=== PATIENT | female | born 1990 | race Caucasian/White ===

== ENCOUNTER 2019-03-27 10:27 | Emergency (ER) | payer OTHER ==
[2019-03-27 10:54] LABS: ABS Basophils 0.1 10^3/ul (0-0.2); ABS Eosinophils 0.1 10^3/ul (0-0.6); ABS Lymphocytes 2.8 10^3/ul (1.0-4.8); ABS Monocytes 0.7 10^3/ul (0-0.8); ABS Neutrophils 5.3 10^3/ul (1.5-7.7); Eosinophil % 1.5 %; Hematocrit 40 % (35-47); Hemoglobin 13.6 g/dL (12.0-16.0); Lymphocyte % 31.4 %; Mean Corpuscular HGB Conc 34 g/dL (31-36); Mean Corpuscular Hemoglobin 28 pg (27-31); Mean Corpuscular Volume 83 fL (80-97); Mean Platelet Volume 8.4 fL (7.4-10.4); Platelet Count 299 10^3/uL (150-450); Red Blood Count 4.81 10^6 /uL (3.70-4.87); Red Cell Distribution Width 13 % (10-15); White Blood Count 9.1 10^3/uL (3.5-10.8)
[2019-03-27 11:02] LABS: INR 1.06 (0.82-1.09)
[2019-03-27 11:08] LABS: Albumin 4.4 g/dL (3.2-5.2); Albumin/Globulin Ratio 1.4 (1-3); BUN/Creatinine Ratio 11.1 (8-20); Calcium 9.8 mg/dL (8.6-10.3); EGFR African American 89.6 (>60); Globulin 3.1 g/dL (2-4); Potassium 4.1 mmol/L (3.5-5.0); Total Bilirubin 0.6 mg/dL (0.2-1.0); Total Protein 7.5 g/dL (6.4-8.9)
[2019-03-27 12:03] VITALS: BP 111/89
--- NOTE | 2019-03-27 12:06 | ED ---
HPI Chest Pain - HPI Summary HPI Summary: This patient is a 28-year-old otherwise healthy female with a history of anxiety presenting to the ED with a "funny feeling" in chest. She states symptoms began yesterday, have remained intermittent, not worsening with positioning or exertion, not better with rest. She has not taken any medication for relief. She denies cardiac history. Denies family history of cardiac issues. Denies SOB. Denies recent travel, calf pain, heart palpitations or racing heart, recent surgery or trauma. She has had heart palpitations in the past associated with her anxiety, but states this feels somewhat different. Denies radiation of discomfort. Describes the pain as intermittent, rated 2/10 and as a funny feeling. No chest pressure or pain. - History of Current Complaint Chief Complaint: EDChestPainROMI Time Seen by Provider: 03/27/19 10:34 Hx Obtained From: Patient Onset/Duration: Started Hours Ago Timing: Constant Initial Severity: Mild Current Severity: Mild Pain Intensity: 0 Pain Scale Used: 0-10 Numeric Chest Pain Location: Mid Sternal Chest Pain Radiates: No Character: Other: - funny feeling Aggravating Factor(s): Nothing Alleviating Factor(s): Nothing Associated Signs and Symptoms: Positive: Negative - Risk Factors Pulmonary Embolism Risk Factors: Negative TAD Risk Factors: Negative - Allergy/Home Medications Allergies/Adverse Reactions: Allergies Allergy/AdvReac Type Severity Reaction Status Date / Time codeine Allergy Nausea And Verified 03/27/19 10:36 Vomiting Home Medications: Home Medications Norethindrone-Ethinyl Estrad [Nortrel 0.5-35-28 Tablet] 1 tab PO DAILY 03/27/19 [History Confirmed 03/27/19] PMH/Surg Hx/FS Hx/Imm Hx Previously Healthy: Yes - Immunization History Hx Pertussis Vaccination: No Immunizations Up to Date: Yes Infectious Disease History: No Infectious Disease History: Denies: Traveled Outside the [place] in Last 30 Days - Social History Occupation: Employed Full-time Lives: With Family Alcohol Use: Occasionally Hx Substance Use: No Substance Use Type: Reports: None Hx Tobacco Use: No Smoking Status (MU): Never Smoked Tobacco Review of Systems Negative: Fever, Chills, Fatigue, Skin Diaphoresis Positive: Chest Pain. Negative: Palpitations Negative: Shortness Of Breath, Cough Genitourinary: Negative Positive: no symptoms reported, see HPI Negative: Arthralgia, Myalgia Skin: Negative All Other Systems Reviewed And Are Negative: Yes Physical Exam Triage Information Reviewed: Yes Vital Signs On Initial Exam: Initial Vitals Temp Pulse Resp BP Pulse Ox 98.4 F 113 16 145/85 99 03/27/19 10:34 03/27/19 10:34 03/27/19 10:34 03/27/19 10:34 03/27/19 10:34 Vital Signs Reviewed: Yes Appearance: Positive: Well-Appearing, No Pain Distress, Well-Nourished Skin: Positive: Warm, Skin Color Reflects Adequate Perfusion Head/Face: Positive: Normal Head/Face Inspection Eyes: Positive: EOMI, JOSH, Conjunctiva Clear Neck: Positive: Supple, No Lymphadenopathy Respiratory/Lung Sounds: Positive: Clear to Auscultation, Breath Sounds Present Cardiovascular: Positive: RRR, Pulses are Symmetrical in both Upper and Lower Extremities Musculoskeletal: Positive: Normal, Strength/ROM Intact Neurological: Positive: Sensory/Motor Intact, Alert, Oriented to Person Place, Time, Speech Normal Psychiatric: Positive: Affect/Mood Appropriate AVPU Assessment: Alert Procedures - Sedation Patient Received Moderate/Deep Sedation with Procedure: No Diagnostics - Vital Signs Vital Signs Temp Pulse Resp BP Pulse Ox 03/27/19 11:59 97.9 F 71 22 111/89 97 03/27/19 11:44 78 18 97 03/27/19 11:16 79 17 121/75 97 03/27/19 11:00 79 19 97 03/27/19 10:46 80 15 125/81 97 03/27/19 10:42 13 03/27/19 10:34 98.4 F 113 16 145/85 99 - Laboratory Lab Results: Lab Results 03/27/19 03/27/19 03/27/19 Range/Units 10:38 10:38 10:38 WBC 9.1 (3.5-10.8) 10^3/uL RBC 4.81 (3.70-4.87) 10^6 /uL Hgb 13.6 (12.0-16.0) g/dL Hct 40 (35-47) % MCV 83 (80-97) fL MCH 28 (27-31) pg MCHC 34 (31-36) g/dL RDW 13 (10-15) % Plt Count 299 (150-450) 10^3/uL MPV 8.4 (7.4-10.4) fL Neut % (Auto) 58.7 % Lymph % (Auto) 31.4 % [place] % (Auto) 7.8 % Eos % (Auto) 1.5 % Baso % (Auto) 0.6 % Absolute Neuts (auto) 5.3 (1.5-7.7) 10^3/ul Absolute Lymphs (auto) 2.8 (1.0-4.8) 10^3/ul Absolute Monos (auto) 0.7 (0-0.8) 10^3/ul Absolute Eos (auto) 0.1 (0-0.6) 10^3/ul Absolute Basos (auto) 0.1 (0-0.2) 10^3/ul Absolute Nucleated RBC 0.0 10^3/ul Nucleated RBC % 0.0 INR (Anticoag Therapy) 1.06 (0.82-1.09) D-Dimer, Quantitative < 200 (Less Than 230) ng/mL Sodium 136 (135-145) mmol/L Potassium 4.1 (3.5-5.0) mmol/L Chloride 103 (101-111) mmol/L Carbon Dioxide 25 (22-32) mmol/L Anion Gap 8 (2-11) mmol/L BUN 10 (6-24) mg/dL Creatinine 0.90 (0.51-0.95) mg/dL Est GFR ( Amer) 89.6 (>60) Est GFR (Non-Af Amer) 74.0 (>60) BUN/Creatinine Ratio 11.1 (8-20) Glucose 105 H (70-100) mg/dL Calcium 9.8 (8.6-10.3) mg/dL Total Bilirubin 0.60 (0.2-1.0) mg/dL AST 20 (13-39) U/L ALT 8 (7-52) U/L Alkaline Phosphatase 42 (34-104) U/L Troponin I 0.00 (<0.03) ng/mL Total Protein 7.5 (6.4-8.9) g/dL Albumin 4.4 (3.2-5.2) g/dL Globulin 3.1 (2-4) g/dL Albumin/Globulin Ratio 1.4 (1-3) Result Diagrams: 03/27/19 10:38 03/27/19 10:38 Lab Statement: Any lab studies that have been ordered have been reviewed, and results considered in the medical decision making process. Chest Pain Course/Dx - Course Course Of Treatment: Patient presents to the ED with feelings of discomfort to the midsternal chest wall which is nonradiating. Denies any anxiety at this time, however has a history of such. Denies any shortness of breath. She takes no medications and is otherwise healthy. No cardiac history. No family history of cardiac issues. She takes no medications. Heart score= 0. Low score with a Risk of MACE of 0.9-1.7%. Pt states she feels well after re- examination. Trop 0.00. Dimer < 200. Lungs CTA, RRR. Abd soft, non-tender. EOMI/PERRL. No carotid bruits. No bilateral leg swelling. VS stable at 97.9, 125/81, 97% on room air, respirations 15 and heart rate of 80. As pt is asymptomatic at this time, otherwise stable and no cardiac risk factors, pt is able to be DC'd home at this time with close f/u with PCP. - Chest Pain Differential Diagnosis/HQI/PQRI: ACS, Angina, Chest Wall, Other: - heart palpitations, muscle pain, anxiety - Diagnoses Provider Diagnoses: Chest wall pain Discharge ED - Sign-Out/Discharge Documenting (check all that apply): Patient Departure - Discharge Plan Condition: Stable Disposition: HOME Patient Education Materials: Angina (ED) Referrals: Renu Nicolas MD [Primary Care Provider] - Additional Instructions: Please follow up with PCP as needed Your EKG, chest xray and labs were all normal during todays visit - Billing Disposition and Condition Condition: STABLE Disposition: Home - Attestation Statements Provider Attestation: I was available for consultation for this patient. I did not evaluate the patient or participate in any medical decision making or disposition decisions unless I am specifically named in the chart as having consulted on the patient. If I have consulted on the patient, please see my own ED note on the patient encounter. Africa Gallegos MD
== END 2019-03-27 11:59 | disposition home or self-care (01) ==
LOC: ED 10:27
DX: R07.89 Other chest pain (principal); Z88.5 Allergy status to narcotic agent
CPT/HCPCS: 36415; 71046; 80053; 84484; 85025; 85379; 85610; 93005; 99282